=== PATIENT | female | born 1960 | race Caucasian/White ===

== ENCOUNTER 2019-10-31 04:23 | Observation (INO) | payer SELFPAY ==
[~2019-10-31] VITALS: Ht 165.1 cm; Wt 90.7 kg
[~2019-10-31 04:23] MED LIST: ALBU90OI INH; HYDACE5 PO; HYDR1TAB94 PO; PRED20 PO; TRELEGY ELLIPT1 EACH INH; Zithromax250 MG PO
[2019-10-31 05:28] LABS: BASOPHILS ABSOLUTE AUTO 0.06 K/mm3 (0.00-0.23); BASOPHILS PERCENT AUTO 1 % (0-2); EOSINOPHILS ABSOLUTE AUTO 0.23 K/mm3 (0.00-0.68); EOSINOPHILS PERCENT AUTO 2 % (0-6); Hematocrit 50.2 % (33.0-51.0); Hemoglobin 16.5 g/dL (11.5-16.0); IMMATURE GRAN ABSOLUTE AUTO 0.04 K/mm3 (0.00-0.10); IMMATURE GRAN PERCENT AUTO 0 % (0-1); LYMPHOCYTES ABSOLUTE AUTO 2.74 K/mm3 (0.84-5.20); LYMPHOCYTES PERCENT AUTO 24 % (21-46); MONOCYTES ABSOLUTE AUTO 0.74 K/mm3 (0.16-1.47); MONOCYTES PERCENT AUTO 6 % (4-13); Mean Corpuscular HGB 29.3 pg (26.0-34.0); Mean Corpuscular HGB Conc 32.9 g/dL (31.5-36.5); Mean Corpuscular Volume 89 fL (80-100); Mean Platelet Volume 10.5 fL (9.1-12.4); NEUTROPHILS ABSOLUTE AUTO 7.79 K/mm3 (1.96-9.15); NEUTROPHILS PERCENT AUTO 67 % (41-73); Platelet Count 257 K/mm3 (150-400); RDW Coefficient Variation 13.1 % (11.7-14.2); RDW Standard Deviation 42.5 fL (35.1-46.3); Red Blood Cell Count 5.64 M/mm3 (3.80-5.20)
[2019-10-31 05:43] LABS: Alanine Aminotransfer (ALT/SGP 24 U/L (12-78); Albumin, Blood 3.2 g/dL (3.4-5.0); Albumin/Globulin Ratio 0.8 (0.8-1.8); Alk Phos 90 U/L (50-136); Anion Gap 2 mmol/L (6-16); Aspartate Aminotrans (AST/SGOT 20 U/L (12-37); Bilirubin, Total 0.4 mg/dL (0.1-1.0); Blood Urea Nitrogen 12 mg/dL (8-24); CO2, Blood 26 mmol/L (21-32); Calcium, Blood 9.2 mg/dL (8.5-10.1); Chloride, Blood 107 mmol/L (98-108); Creatinine, Blood 0.71 mg/dL (0.40-1.00); Globulin, Blood 4.2 g/dL (2.2-4.0); Glomerular Filtration Rate >60 (60-); Glucose, Blood 146 mg/dL (70-99); Sodium, Blood 135 mmol/L (136-145); Total Protein, Blood 7.4 g/dL (6.4-8.2)
--- NOTE | 2019-10-31 10:54 | NUR ---
PT REPORTS UPPER DENTURES W/PT, LOWERS AT HOME.
--- NOTE | 2019-10-31 11:56 | NUR ---
DR VALENCIA IN TO SEE PT.
--- NOTE | 2019-10-31 18:41 | NUR ---
SUMMARY NO ACUTE CHANGES T/O SHIFT. MEDICATED ONCE DURING SHIFT FOR RLQ PAIN. TOLERATING FULL LIQUID DIET. CALL LIGHT IN REACH.
[2019-11-01 05:26] LABS: BASOPHILS ABSOLUTE AUTO 0.04 K/mm3 (0.00-0.23); BASOPHILS PERCENT AUTO 1 % (0-2); EOSINOPHILS ABSOLUTE AUTO 0.27 K/mm3 (0.00-0.68); EOSINOPHILS PERCENT AUTO 4 % (0-6); Hematocrit 44.2 % (33.0-51.0); IMMATURE GRAN ABSOLUTE AUTO 0.01 K/mm3 (0.00-0.10); IMMATURE GRAN PERCENT AUTO 0 % (0-1); LYMPHOCYTES ABSOLUTE AUTO 1.91 K/mm3 (0.84-5.20); LYMPHOCYTES PERCENT AUTO 28 % (21-46); MONOCYTES PERCENT AUTO 7 % (4-13); Mean Corpuscular HGB 29.2 pg (26.0-34.0); Mean Corpuscular HGB Conc 31.7 g/dL (31.5-36.5); Mean Platelet Volume 10.4 fL (9.1-12.4); NEUTROPHILS ABSOLUTE AUTO 4.22 K/mm3 (1.96-9.15); NEUTROPHILS PERCENT AUTO 61 % (41-73); Platelet Count 225 K/mm3 (150-400); RDW Standard Deviation 44.2 fL (35.1-46.3); Red Blood Cell Count 4.79 M/mm3 (3.80-5.20); White Blood Cell Count 6.95 K/mm3 (4.00-11.30)
[2019-11-01 05:30] LABS: Mean Corpuscular Volume 92 fL (80-100)
--- NOTE | 2019-11-01 07:30 | NUR ---
SUMMARY PT DENIES NAUSEA TONIGHT. TOLERATING PO. REPORTS PAIN IS SIGNIFICANTLY LESS THAN ON ADMIT.
[2019-11-01] MEDS ORDERED: AMOCLA875 PO (14:22)
--- NOTE | 2019-11-01 15:45 | NUR ---
DISCHARGED PT DC'D. DC'D IV, CATHETER INTACT. REVIEWED DC PAPERWORK W/PT; VERBALIZED UNDERSTANDING. CALLED PRESCRIPTION INTO [facility] PER PT REQUEST. PT LEFT UNIT BY AMBULATION W/POSSESSIONS AND DC PAPERWORK IN HAND, ACCOMPANIED BY S.O.
== END 2019-11-01 14:50 | disposition home or self-care (01) ==
LOC: ER 04:23 → SURS 04:24
PROVIDERS: Emergency Medicine; ADMIT Surgery
DX: K52.9 Noninfective gastroenteritis and colitis, unspecified (principal); J44.9 Chronic obstructive pulmonary disease, unspecified; F17.210 Nicotine dependence, cigarettes, uncomplicated
CPT/HCPCS: 36415; 74176; 80053; 83690; 85025; 90686; 96361; 96365; 96366; 96374; 96375; 96376; 99285-25; G0008; G0378; J2405; J2543; J3010; J7030; J7120

== ENCOUNTER 2019-11-11 07:31 | Inpatient (IN) | payer OTHER ==
[~2019-11-11] VITALS: Ht 165.1 cm; Wt 88.7 kg
[~2019-11-11 07:31] MED LIST changes: +AMOCLA875 PO
[2019-11-11 08:55] LABS: BASOPHILS ABSOLUTE AUTO 0.07 K/mm3 (0.00-0.23); BASOPHILS PERCENT AUTO 1 % (0-2); EOSINOPHILS ABSOLUTE AUTO 0.12 K/mm3 (0.00-0.68); EOSINOPHILS PERCENT AUTO 1 % (0-6); Hematocrit 43.9 % (33.0-51.0); Hemoglobin 14.4 g/dL (11.5-16.0); IMMATURE GRAN ABSOLUTE AUTO 0.05 K/mm3 (0.00-0.10); IMMATURE GRAN PERCENT AUTO 0 % (0-1); LYMPHOCYTES ABSOLUTE AUTO 2.74 K/mm3 (0.84-5.20); LYMPHOCYTES PERCENT AUTO 19 % (21-46); MONOCYTES ABSOLUTE AUTO 1.04 K/mm3 (0.16-1.47); MONOCYTES PERCENT AUTO 7 % (4-13); Mean Corpuscular HGB 28.7 pg (26.0-34.0); Mean Corpuscular HGB Conc 32.8 g/dL (31.5-36.5); Mean Corpuscular Volume 88 fL (80-100); NEUTROPHILS ABSOLUTE AUTO 10.52 K/mm3 (1.96-9.15); NEUTROPHILS PERCENT AUTO 72 % (41-73); Platelet Count 318 K/mm3 (150-400); RDW Coefficient Variation 12.8 % (11.7-14.2); RDW Standard Deviation 40.8 fL (35.1-46.3); Red Blood Cell Count 5.01 M/mm3 (3.80-5.20); White Blood Cell Count 14.54 K/mm3 (4.00-11.30)
[2019-11-11 09:12] LABS: Alanine Aminotransfer (ALT/SGP 21 U/L (12-78); Albumin/Globulin Ratio 0.7 (0.8-1.8); Anion Gap 4 mmol/L (6-16); Aspartate Aminotrans (AST/SGOT 13 U/L (12-37); Bilirubin, Total 0.6 mg/dL (0.1-1.0); Blood Urea Nitrogen 9 mg/dL (8-24); Bun/Creatinine Ratio 10.8 (12.0-20.0); CO2, Blood 27 mmol/L (21-32); Calcium, Blood 8.9 mg/dL (8.5-10.1); Chloride, Blood 105 mmol/L (98-108); Creatinine, Blood 0.84 mg/dL (0.40-1.00); Globulin, Blood 4.6 g/dL (2.2-4.0); Glomerular Filtration Rate >60 (60-); Glucose, Blood 115 mg/dL (70-99); Potassium, Blood 4.2 mmol/L (3.5-5.5); Sodium, Blood 136 mmol/L (136-145); Total Protein, Blood 7.6 g/dL (6.4-8.2)
[2019-11-11 09:13] LABS: Alk Phos 85 U/L (50-136)
[2019-11-11 09:43] LABS: Source, Urine Clean Catch
[2019-11-11 09:53] LABS: Bilirubin, Urine Neg (Neg); Blood, Urine 1+ (Neg); Glucose Qualitative, Urine Neg (Neg); Ketones, Urine Neg (Neg); Leukocyte Esterase, Urine 1+ (Neg); Nitrite, Urine Neg (Neg); Protein, Urine Neg (Neg); Specific Gravity, Urine 1.015 (1.003-1.022); Urobilinogen, Urine NORM (Normal)
[2019-11-11 10:06] LABS: Appearance, Urine Clear (Clear); Color, Urine Yellow (P-Yellow)
[2019-11-11 10:07] LABS: Bacteria Few /hpf; Red Blood Cells, Urine 0-2 /hpf (0-2); Squamous Epithelial Cells Mod /hpf (Few); White Blood Cells, Urine 0-2 /hpf (0-5)
--- NOTE | 2019-11-11 13:56 | NUR ---
PT ADMITTED PT AMDITTED AT 1225. PT IN STABLE CONDITION. VSS. DENIES PAIN AT THIS TIME. ORIENTED TO ROOM .CALL LIGHT IN REACH. WILL CONTINUE TO MONITOR.
--- NOTE | 2019-11-11 17:11 | NUR ---
SHIFT SUMMARY PT MEDICATED FOR NAUSEA ONCE THIS SHIFT. NO PAIN REPORTED. NO OTHER CHANGES IN ASSESSMENT AT THIS TIME. VSS. PT TOLERATING CLEAR LIQUID DIET. AWAITING BM FOR GI PANEL. R/O ISOLATION SET UP. WILL CONTINUE TO MONITOR UNTIL TURNOVER IS COMPLETE.
--- NOTE | 2019-11-12 04:09 | NUR ---
SHIFT SUMMARY ASSUMED CARE PF PT AT 1900. PT IS A/O X4, DENIES N/T IN EXTREMITIES. HEART SOUNDS REGULAR, LUNG SOUNDS CLEAR, DENIES SOB/CP AT THIS TIME. PT IS INDEPENDENT IN ROOM. NO ACUTE EVENTS DURING THE NIGHT, PT SLEPT T/O THE NIGHT. PT HOPES TO BE ABLE TO EAT TODAY AND HOPEFULLY TO GO HOME. CALL LIGHT IN REACH, BED IN LOWEST POSTION, WILL CONTINUE TO MONITOR UNTIL DAYSHIFT NURSE ARRIVES.
[2019-11-12 05:25] LABS: BASOPHILS ABSOLUTE AUTO 0.07 K/mm3 (0.00-0.23); BASOPHILS PERCENT AUTO 1 % (0-2); EOSINOPHILS ABSOLUTE AUTO 0.24 K/mm3 (0.00-0.68); EOSINOPHILS PERCENT AUTO 3 % (0-6); Hematocrit 41.1 % (33.0-51.0); IMMATURE GRAN ABSOLUTE AUTO 0.03 K/mm3 (0.00-0.10); IMMATURE GRAN PERCENT AUTO 0 % (0-1); LYMPHOCYTES ABSOLUTE AUTO 2.41 K/mm3 (0.84-5.20); LYMPHOCYTES PERCENT AUTO 30 % (21-46); MONOCYTES ABSOLUTE AUTO 0.68 K/mm3 (0.16-1.47); MONOCYTES PERCENT AUTO 8 % (4-13); Mean Corpuscular HGB 28.6 pg (26.0-34.0); Mean Corpuscular HGB Conc 31.6 g/dL (31.5-36.5); Mean Platelet Volume 10.2 fL (9.1-12.4); NEUTROPHILS ABSOLUTE AUTO 4.75 K/mm3 (1.96-9.15); NEUTROPHILS PERCENT AUTO 58 % (41-73); Platelet Count 293 K/mm3 (150-400); RDW Coefficient Variation 13.1 % (11.7-14.2); RDW Standard Deviation 43.3 fL (35.1-46.3); Red Blood Cell Count 4.54 M/mm3 (3.80-5.20); White Blood Cell Count 8.18 K/mm3 (4.00-11.30)
[2019-11-12 05:34] LABS: Mean Corpuscular Volume 91 fL (80-100)
[2019-11-12 05:47] LABS: Alanine Aminotransfer (ALT/SGP 19 U/L (12-78); Albumin, Blood 2.5 g/dL (3.4-5.0); Albumin/Globulin Ratio 0.6 (0.8-1.8); Alk Phos 71 U/L (50-136); Anion Gap 4 mmol/L (6-16); Aspartate Aminotrans (AST/SGOT 15 U/L (12-37); Bilirubin, Total 0.5 mg/dL (0.1-1.0); Blood Urea Nitrogen 8 mg/dL (8-24); Bun/Creatinine Ratio 8.5 (12.0-20.0); CO2, Blood 27 mmol/L (21-32); Calcium, Blood 8.5 mg/dL (8.5-10.1); Chloride, Blood 110 mmol/L (98-108); Creatinine, Blood 0.95 mg/dL (0.40-1.00); Glomerular Filtration Rate >60 (60-); Glucose, Blood 97 mg/dL (70-99); Potassium, Blood 4.6 mmol/L (3.5-5.5); Sodium, Blood 141 mmol/L (136-145); Total Protein, Blood 6.5 g/dL (6.4-8.2)
--- NOTE | 2019-11-13 04:55 | NUR ---
SUMMARY PT HAD NO DISCOMFORT NOTED AND HAS BEEN HUNGRY T/O SHIFT. PT HAS BEEN FED PER DIET ORDERED. PT IS EAGER TO GO HOME. NO BM NOTED THIS SHIFT. PT HAS BEEN SLEEPING OFF AND ON T/O SHIFT. PT CURRENTLY SLEEPING AND BREATHING EASY. CALL LIGHT IN REACH. WCTM
[2019-11-13 05:38] LABS: BASOPHILS ABSOLUTE AUTO 0.06 K/mm3 (0.00-0.23); BASOPHILS PERCENT AUTO 1 % (0-2); EOSINOPHILS ABSOLUTE AUTO 0.23 K/mm3 (0.00-0.68); EOSINOPHILS PERCENT AUTO 4 % (0-6); Hematocrit 40.1 % (33.0-51.0); Hemoglobin 12.6 g/dL (11.5-16.0); IMMATURE GRAN ABSOLUTE AUTO 0.02 K/mm3 (0.00-0.10); IMMATURE GRAN PERCENT AUTO 0 % (0-1); LYMPHOCYTES ABSOLUTE AUTO 2.43 K/mm3 (0.84-5.20); LYMPHOCYTES PERCENT AUTO 41 % (21-46); MONOCYTES ABSOLUTE AUTO 0.48 K/mm3 (0.16-1.47); MONOCYTES PERCENT AUTO 8 % (4-13); Mean Corpuscular HGB Conc 31.4 g/dL (31.5-36.5); Mean Corpuscular Volume 92 fL (80-100); Mean Platelet Volume 10.3 fL (9.1-12.4); NEUTROPHILS ABSOLUTE AUTO 2.67 K/mm3 (1.96-9.15); NEUTROPHILS PERCENT AUTO 45 % (41-73); Platelet Count 297 K/mm3 (150-400); RDW Coefficient Variation 12.8 % (11.7-14.2); RDW Standard Deviation 43.3 fL (35.1-46.3); Red Blood Cell Count 4.34 M/mm3 (3.80-5.20); White Blood Cell Count 5.89 K/mm3 (4.00-11.30)
[2019-11-13 05:53] LABS: Anion Gap 3 mmol/L (6-16); Blood Urea Nitrogen 5 mg/dL (8-24); Bun/Creatinine Ratio 5.9 (12.0-20.0); CO2, Blood 28 mmol/L (21-32); Calcium, Blood 8.5 mg/dL (8.5-10.1); Chloride, Blood 110 mmol/L (98-108); Creatinine, Blood 0.85 mg/dL (0.40-1.00); Glomerular Filtration Rate >60 (60-); Glucose, Blood 164 mg/dL (70-99); Potassium, Blood 4.4 mmol/L (3.5-5.5); Sodium, Blood 141 mmol/L (136-145)
[2019-11-13] MEDS ORDERED: LEVFLO500 PO (11:17)
[2019-11-13] MEDS ORDERED: METR500 PO (11:17)
--- NOTE | 2019-11-13 11:32 | NUR ---
DISCHARGE INSTRUCTIONS REVIEWED WITH PT. IV DC'D INTACT. PT DISCHARGED HOME AT 1130.
== END 2019-11-13 11:31 | disposition home or self-care (01) | DRG 392 ==
LOC: ER 07:31 → MEDS 11:11
PROVIDERS: Family Medicine; Physician Assistant; ADMIT Internal Medicine
DX: K57.20 Diverticulitis of large intestine with perforation and abscess without bleeding (principal); J44.9 Chronic obstructive pulmonary disease, unspecified; F17.210 Nicotine dependence, cigarettes, uncomplicated
CPT/HCPCS: 36415; 74177; 80048; 80053; 81001; 83690; 85025; 87015; 87045; 87046; 87077; 87086; 87186; 87205; 87899; 90670; 94640; 96365-59; 96375; 99285-25; J1885; J2405; J2543; J7030; Q0163; Q9967

== ENCOUNTER 2023-09-05 07:54 | Observation (INO) | payer OTHER ==
[~2023-09-05 07:54] MED LIST changes: +LEVFLO500 PO; +METR500 PO
[2023-09-05 09:04] LABS: BASOPHILS ABSOLUTE AUTO 0.07 K/mm3 (0.00-0.23); BASOPHILS PERCENT AUTO 1 % (0-2); EOSINOPHILS ABSOLUTE AUTO 0.07 K/mm3 (0.00-0.68); EOSINOPHILS PERCENT AUTO 1 % (0-6); Hematocrit 41.5 % (33.0-51.0); Hemoglobin 13.8 g/dL (11.5-16.0); IMMATURE GRAN ABSOLUTE AUTO 0.05 K/mm3 (0.00-0.10); IMMATURE GRAN PERCENT AUTO 0 % (0-1); LYMPHOCYTES ABSOLUTE AUTO 2.24 K/mm3 (0.84-5.20); LYMPHOCYTES PERCENT AUTO 17 % (21-46); MONOCYTES ABSOLUTE AUTO 0.88 K/mm3 (0.16-1.47); MONOCYTES PERCENT AUTO 7 % (4-13); Mean Corpuscular HGB 29.1 pg (26.0-34.0); Mean Corpuscular HGB Conc 33.3 g/dL (31.5-36.5); Mean Corpuscular Volume 87 fL (80-100); Mean Platelet Volume 9.9 fL (9.1-12.4); NEUTROPHILS ABSOLUTE AUTO 9.62 K/mm3 (1.96-9.15); NEUTROPHILS PERCENT AUTO 75 % (41-73); Platelet Count 272 K/mm3 (150-400); RDW Coefficient Variation 13.2 % (11.7-14.2); RDW Standard Deviation 42.3 fL (35.1-46.3); Red Blood Cell Count 4.75 M/mm3 (3.80-5.20); White Blood Cell Count 12.93 K/mm3 (4.00-11.30)
[2023-09-05 09:08] LABS: Source, Urine Clean Catch
[2023-09-05 09:12] LABS: Appearance, Urine Hazy (Clear); Bilirubin, Urine Neg (Neg); Blood, Urine 2+ (Neg); Color, Urine Yellow (P-Yellow); Glucose Qualitative, Urine Neg (Neg); Ketones, Urine 3+ (Neg); Leukocyte Esterase, Urine Neg (Neg); Nitrite, Urine Neg (Neg); Protein, Urine Neg (Neg); Urobilinogen, Urine NORM (Normal)
[2023-09-05 09:46] LABS: Bacteria Few /hpf; Red Blood Cells, Urine 0-2 /hpf (0-2); Squamous Epithelial Cells Few /hpf (Few); White Blood Cells, Urine 0-2 /hpf (0-5)
[2023-09-05 09:47] LABS: Albumin, Blood 3.1 g/dL (3.4-5.0); Albumin/Globulin Ratio 0.7 (0.8-1.8); Bilirubin, Direct 0.2 mg/dL (0.0-0.3); Bilirubin, Indirect 0.4 mg/dL (0.1-0.7); Bilirubin, Total 0.6 mg/dL (0.1-1.0); Bun/Creatinine Ratio 11.1 (12.0-20.0); Calcium, Blood 8.7 mg/dL (8.5-10.1); Creatinine, Blood 0.9 mg/dL (0.40-1.00); Globulin, Blood 4.5 g/dL (2.2-4.0); Magnesium, Blood 2.2 mg/dL (1.6-2.4); Total Protein, Blood 7.6 g/dL (6.4-8.2)
[2023-09-05 15:26] VITALS: BP 120/70
--- NOTE | 2023-09-05 15:47 | NUR ---
ADMIT PT ADMITTED TO FLOOR. CALL LIGHT IN REACH. DR. BAEZ CALLED TO CLARIFY NPO ORDER. PT STATES SHE WAS EATING IN THE ER. DR. BAEZ ORDERED A LOW FIBER DIET SINCE THE PATIENT STATES SHE TOLERATED A TURKEY SANDWICH DOWNSTAIRS. BEVERAGES ALSO PROVIDED. PT STATES SHE WOULD LIKE A FLU SHOT, BUT NOT AT THIS TIME. PT ENCOURAGED TO ASK FOR IT WHEN READY. VS REVIEWED. LS CLEAR. HR REGULAR. DENIES PAIN UNLESS PALPATING ON LLQ.
[2023-09-05 16:51] VITALS: BP 126/99
--- NOTE | 2023-09-05 18:10 | NUR ---
SHIFT SUMMARY PT TOLERATING FULL LIQ DIET. DENIES PAIN OR NAUSEA SINCE ARRIVAL. DR. VALENCIA IN TO SEE THE PATIENT. NO SURGERY NEEDED AT THIS TIME. PT AMBULATING IN ROOM. CALL LIGHT IN REACH. NO OTHER ACUTE CHANGES IN ADMIT ASSESSMENT AT THIS TIME. VS REVIEWED. DENIES OTHER NEEDS AT THIS TIME.
[2023-09-05 19:37] VITALS: BP 106/68
--- NOTE | 2023-09-06 04:12 | NUR ---
SHIFT SUMMARY PATIENT HAD NO ACUTE CHANGES. AXOX 4 AND INDEPENDENT IN ROOM. PIV REMAINS INTACT. IV ABX INFUSED. DENIES CHEST PAIN, SOB, AND N/V. TYLENOL 500 MG GIVEN FOR LS ABDOMINAL PAIN X ONE. VSS/AFEBRILE. PATIENT HAD POPSICLE, CHICKEN BROTH X 2 AND JELLO THIS SHIFT. CALL LIGHT IN REACH. BED IN LOWEST POSITION. WILL CONTINUE TO MONITOR UNTIL DAY SHIFT NURSE ASSUMES CARE.
[2023-09-06 05:08] VITALS: BP 113/67
[2023-09-06 05:50] LABS: BASOPHILS ABSOLUTE AUTO 0.05 K/mm3 (0.00-0.23); BASOPHILS PERCENT AUTO 1 % (0-2); EOSINOPHILS ABSOLUTE AUTO 0.11 K/mm3 (0.00-0.68); EOSINOPHILS PERCENT AUTO 1 % (0-6); Hematocrit 37.5 % (33.0-51.0); Hemoglobin 12.5 g/dL (11.5-16.0); IMMATURE GRAN ABSOLUTE AUTO 0.02 K/mm3 (0.00-0.10); IMMATURE GRAN PERCENT AUTO 0 % (0-1); LYMPHOCYTES ABSOLUTE AUTO 2.44 K/mm3 (0.84-5.20); LYMPHOCYTES PERCENT AUTO 23 % (21-46); MONOCYTES ABSOLUTE AUTO 0.86 K/mm3 (0.16-1.47); MONOCYTES PERCENT AUTO 8 % (4-13); Mean Corpuscular HGB 29.6 pg (26.0-34.0); Mean Corpuscular HGB Conc 33.3 g/dL (31.5-36.5); Mean Corpuscular Volume 89 fL (80-100); Mean Platelet Volume 9.8 fL (9.1-12.4); NEUTROPHILS ABSOLUTE AUTO 7.03 K/mm3 (1.96-9.15); NEUTROPHILS PERCENT AUTO 67 % (41-73); Platelet Count 226 K/mm3 (150-400); RDW Coefficient Variation 13.5 % (11.7-14.2); RDW Standard Deviation 43.9 fL (35.1-46.3); Red Blood Cell Count 4.23 M/mm3 (3.80-5.20); White Blood Cell Count 10.51 K/mm3 (4.00-11.30)
[2023-09-06 06:26] LABS: Albumin, Blood 2.6 g/dL (3.4-5.0); Albumin/Globulin Ratio 0.7 (0.8-1.8); Bilirubin, Total 0.6 mg/dL (0.1-1.0); Bun/Creatinine Ratio 8.7 (12.0-20.0); Calcium, Blood 8.3 mg/dL (8.5-10.1); Creatinine, Blood 1.04 mg/dL (0.40-1.00); Globulin, Blood 3.9 g/dL (2.2-4.0); Total Protein, Blood 6.5 g/dL (6.4-8.2)
[2023-09-06 07:59] VITALS: BP 106/77
--- NOTE | 2023-09-06 10:34 | NUR ---
PT EDUCATION EXPLAINED DIET TO BE ADVANCED PT COULD TOLERATE BEFORE DISCHARGE
[2023-09-06] MEDS ORDERED: AMOX-CLAV 875-1 EAC5 PO (15:33)
--- NOTE | 2023-09-06 15:52 | NUR ---
PT DISCHARGED THE PT VERBALIZED UNDERSTANDING OF THE DC INSTRUCTIONS. [facility]. A FOLLOW UP APPOINTMENT WAS MADE FOR THE PT PRIOE TO DC. THE PT WAS TRANSFERED VIA WHEELCHAIR ACCOMPANIED BY THE AUTOMATION QA LEAD.
== END 2023-09-06 15:50 | disposition home or self-care (01) ==
LOC: ER 07:54 → MEDS 07:59 → ER 10:12 → MEDS 15:19
PROVIDERS: Student in an Organized Health Care Education/Training Program; ADMIT Internal Medicine
DX: A41.9 Sepsis, unspecified organism (principal); K57.20 Diverticulitis of large intestine with perforation and abscess without bleeding; J44.9 Chronic obstructive pulmonary disease, unspecified; R73.03 Prediabetes; E78.2 Mixed hyperlipidemia; N18.31 Chronic kidney disease, stage 3a; E66.9 Obesity, unspecified; Z68.32 Body mass index [BMI] 32.0-32.9, adult; Z87.891 Personal history of nicotine dependence
CPT/HCPCS: 36415; 74177; 80048; 80053; 80076; 81001; 83605; 83690; 83735; 85025; 87086; 93005; 93010; 96361; 96365; 96366; 96368; 96375; 99285-25; A9270; J0696; J1650; J1885; J2405; J2543; J2765; J3475; J7030; J7120; Q9967

== ENCOUNTER 2025-05-13 09:35 | Day surgery (SDC) | payer OTHER ==
[~2025-05-13] VITALS: Ht 165.1 cm; Wt 93.8 kg
[2025-05-13] VITALS (16 sets, daily range): BP systolic 110–168; BP diastolic 74–103
[~2025-05-13 09:35] MED LIST changes: +AMOX-CLAV 875-1 EAC5 PO; +GABA100 PO; +MAG; +ONDA4ODT MM; +POT; +SOD
--- NOTE | 2025-05-13 10:36 | NUR ---
Ambulatory in Day Surgery. History, Chart, Medications and Allergies reviewed before start of procedure. Lungs clear T/O to Auscultation. Exertional SOB. Patient confirms NPO status and agrees with scheduled surgery. Pre-Op teaching done. Pt verbalizes understanding. Patient States Post-Procedure ride home has been arranged.
[2025-05-13] MEDS ORDERED: Ondansetron HCl 2 MG / ML 2ML Vial IV ONE (10:40)
[2025-05-13] MEDS ORDERED: Ondansetron HCl 2 MG / ML 2ML Vial ONE (10:45)
--- NOTE | 2025-05-13 11:14 | NUR ---
05/13/25 1114 Melanie Hansen CONFIRMED AND REVIEWED H&P, MEDCICATIONS, ALLERGIES, MEDICAL HISTORY, RESPIRATORY HISTORY, VITAL SIGNS, 3-LEAD EKG, CONSENTS, AND PHYSICIAN ORDERS. PATIENT CONFIRMS NPO STATUS AND AGREES WITH SCHEDULED PROCEDURE. MONITOR INTACT WITH CONTINUOUS PULSE OXIMETRY, CAPNOGRAPHY, 3-LEAD EKG, INTERMITTENT BP. SUPPLEMENTAL O2 TO BE TITRATED THROUGHOUT PROCEDURE TO MAINTAIN O2 SATURATION ABOVE 90%. PATIENT DETERMINED TO BE ASA APPROPRIATE FOR PROPOFOL SEDATION PRIOR TO START OF PROCEDURE BY DR. VALENCIA.
--- NOTE | 2025-05-13 12:00 | NUR ---
REPORT RECEIVED FROM SUZAN CALVIN. VSS. PT ON RA. PT A&OX4. PT ABLE TO REPOSITION SELF IN BED. PT REQUESTING PO FLUIDS AND TOLERATING THEM WELL. PT DENIES PAIN, NAUSEA OR OTHER DISCOMFORTS.
--- NOTE | 2025-05-13 12:15 | NUR ---
Patient up to Ambulate independently. Gait consistent with pt baseline. VSS and consistent with pt baseline. Pt has no complaints and verbalizes readiness to go home. Discharge instructions reviewed with patient. Patient verbalizes understanding. Copy given to patient to take home. Discharged via wheelchair to private car for ride home. Pt belongings returned to pt.
== END 2025-05-13 12:17 | disposition home or self-care (01) ==
LOC: ORSCMMR 09:35 → ORD 10:45 → ORSCSDS 10:45 → ORSCMMR 10:45
PROVIDERS: Surgery
PROC: 0DJD8ZZ Inspection of Lower Intestinal Tract, Via Natural or Artificial Opening Endoscopic (ICD-10-PCS; principal; 2025-05-13 10:45)
DX: K57.20 Diverticulitis of large intestine with perforation and abscess without bleeding (principal); K57.30 Diverticulosis of large intestine without perforation or abscess without bleeding; J44.9 Chronic obstructive pulmonary disease, unspecified; Z79.899 Other long term (current) drug therapy
CPT/HCPCS: J2405; J2704; J7120